=== PATIENT | male | born 1960 | race African-American/Black ===

== ENCOUNTER → 2025-05-19 | Day surgery (SDC) | payer MEDICARE, OTHER ==
[2025-05-17 14:36] LABS: Hematocrit 46.1 % (41.0-53.0); Hemoglobin 15.8 g/dL (13.5-17.5); Mean Corpuscular Hemoglobin 30.8 pg (28.0-32.0); Mean Corpuscular Volume 90.0 fL (80.0-100.0); Nucleated Red Blood Cells % 0.0 %
[2025-05-17 14:48] LABS: INR 0.99 (0.9-1.15); Partial Thromboplastin Time 25.9 SEC (24.5-34.5); Prothrombin Time 10.5 sec (9.3-11.8)
[2025-05-17 14:56] LABS: Alkaline Phosphatase 91 U/L (46-116); Anion Gap 8 (5-15); BUN/Creatinine Ratio 11.6 (10.0-20.0); Blood Urea Nitrogen 13 mg/dL (9-23); Calcium 10.1 mg/dL (8.7-10.4); Carbon Dioxide 29 mmol/L (20-31); Chloride 102 mmol/L (98-107); Glucose 100 mg/dL (74-106); Sodium 139 mmol/L (136-145)
[2025-05-17 14:57] LABS: Bilirubin, Total 0.6 mg/dL (0.2-1.0)
[2025-05-17 15:02] LABS: Alanine Aminotransferase 48 U/L (7-40); Albumin 5.0 g/dL (3.2-4.8); Potassium 3.3 mmol/L (3.5-5.1); Total Protein 8.3 g/dL (5.7-8.2)
[2025-05-17 15:35] LABS: Urine Protein, UAD Negative (Negative)
[~2025-05-19] VITALS: Ht 185.4 cm; Wt 104.3 kg
[~2025-05-19] MED LIST: BACITRACIN TOP OINT 1 UD PKG TOP ONE; BENA20TA12 PO; GABA400C PO; HYDROmorphone HCL 2 MG/ML VL/or syr IV PRN; MEPERIDINE HCL (25 MG/ML) 1ML VIAL ONE; MIDAZOLAM HCL 2MG/2ML 2ml VIAL (1mg/ml) IV PRN; MIDAZOLAM HCL 2MG/2ML 2ml VIAL (1mg/ml) ONE; MORPHINE SULFATE 4 MG/ML SYR/VIAL IV PRN; ONDANSETRON HCL 4 MG/2 ML VIAL IV PRN; PROPOFOL 10 MG/ML 20 ML IV ONE; ceFAZolin 2 GM/D5W50ml 50 ML IV ONE; fentaNYL CITRATE 100 MCG/2 ML VL ONE; hydrALAZINE HCL 20 MG/ML VL IV PRN
[2025-05-19] MEDS: ROPIVACAINE 0.5% (5MG/ML) 20ML AMPULE IJ ONE (07:47)
[2025-05-19 07:58] VITALS: TEMP 98.4; O2SAT 99
--- NOTE | 2025-05-19 07:59 | DVHOP2 ---
Operative Report - 2 Report Details Date: 05/19/25 Preop Diagnosis: Painful recalcitrant soft tissue mass suspected lipoma plantar medial aspect left foot Postop Diagnosis: Same Surgeon: Cole Gutierrez Anesthesiologist: MD Moe Anesthesia: General Consent: The patient was informed of the risks and benefits of the procedure. These include but are not limited to complications of anesthesia, postoperative infection, incomplete relief of symptoms, recurrence of symptoms, damage to blood vessels, nerves and tendons, deep venous thrombosis, pulmonary embolism and possible need for repeat surgery in the future. The patient and fully understand all the possible risks and complications from the proposed surgical procedure. Alternative methods of treatment completed discussed with the patient and his in detail ranging from doing nothing which is an option conserve therapy a 2nd option surgical intervention a 3rd option. Pros and cons risks and benefit of each single option was discussed with the patient and his . Surgery was opted. They both understand the possibility of nerve damage tendon damage prolonged pain prolonged swelling and prolonged returned to normal shoe gear and activity. Numbness and tingling in the surgical area and the foot as well. All questions were answered to the patient's and 's satisfaction. 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 After general anesthesia was achieved, the left foot was prepped and draped in the proper aseptic manner by which time an ankle tourniquet was applied and inflated to 250 mm Hg pressure after appropriate elevation and exsanguination utilizing an Esmarch. Attention was now directed to procedure 1. Procedure 1. Excision of painful soft tissue mass suspected lipoma plantar medial aspect left foot: A small 2 cm incision was placed on the dorsomedial aspect of the left foot at the area of palpable soft tissue mass/suspected lipoma. The incision was made slightly on the medial dorsal aspect in order to prevent weight-bearing on the incision site. The incision was carried deep by means of sharp and blunt dissection with care being taken to preserve all vital structures. All bleeders were bovied or ligated as necessary. At this time the lipoma was isolated and very meticulously and carefully dissected and sent to pathology as a specimen. Nerves and tendons were inspected specifically to the medial plantar nerve and the flexor hallucis longus tendon, and they were noted to be on damage whatsoever. Area was flushed with copious amounts of irrigant was aspirated no debris was noted. Deep tissue was closed with 4-0 Vicryl suture and skin with 4-0 nylon suture without incident. Prior to surgical dressings, approximately 12 cc of 0.5% ropivacaine plain was injected in a local infiltration fashion for long-term postoperative anesthesia. Surgical dressings consisted of bacitracin ointment, Xeroform, 4x4s, Kerlix, and Coban to yield a mildly compressive type bandage. Ankle tourniquet was released and immediate normal reactive hyperemia returned to all digits with good digital perfusion present. There were no intraoperative complications. The patient left the operating room to recovery room in stable condition. It is important to note that the patient was prophylaxed with 2 g of IV Ancef prior to initiation of the operation. Patient has his postoperative medications and follow visit to my office at home. Patient given strict instructions to ambulate in the cam walker with air only not one step without. Specimen: Soft tissue lipoma Disposition Home COLE GUTIERREZ DPM May 19, 2025 07:59
[2025-05-19 08:57] VITALS: BP 125/73; PULSE 67; RESP 18; O2SAT 97
== END | disposition home or self-care (01) ==
LOC: SUR 06:19
PROVIDERS: ATTEND Podiatrist Foot & Ankle Surgery
DX: D17.24 Benign lipomatous neoplasm of skin and subcutaneous tissue of left leg (principal); I10 Essential (primary) hypertension; G62.9 Polyneuropathy, unspecified; F12.90 Cannabis use, unspecified, uncomplicated; Z79.899 Other long term (current) drug therapy; Z98.890 Other specified postprocedural states
CPT/HCPCS: 28039; 36415; 80053; 81001; 85025; 85610; 85730; 88304; A4649; J0690; J1100; J2175; J2250; J2704; J2795; J3010